=== PATIENT | female | born 1990 | race Caucasian/White ===

== ENCOUNTER 2021-05-22 11:06 | Day surgery (SDC) | payer OTHER ==
[2021-05-22] MEDS ORDERED: LIDOCAINE HCL 2% 100 MG/5 ML IJ ONE (11:07)
[2021-05-22] MEDS ORDERED: DIPRIVAN 200 MG/20 ML IV ONE (11:58)
[2021-05-22] MEDS ORDERED: Lactated Ringers 1,000 ML IV ONE (15:57)
--- NOTE | 2021-05-23 11:53 | XRAY ---
24 seconds of fluoroscopy was used in surgery for a bilateral L4-S1 MBB.
--- NOTE | 2021-05-26 00:08 | XRAY ---
Indication: Bilateral L4-S1 MBB. Intraoperative fluoroscopy was provided for 24 seconds. A single digital spot image submitted for interpretation demonstrates posterior spinal needle tips projected over the expected course of the left and right L4-S1 nerve roots. Correlate with intraoperative findings/report.
== END 2021-05-22 12:40 | disposition home or self-care (01) ==
LOC: SDC-PAIN 11:06
PROVIDERS: ATTEND Psychiatry & Neurology Pain Medicine
DX: M47.816 Spondylosis without myelopathy or radiculopathy, lumbar region (principal); E11.9 Type 2 diabetes mellitus without complications; Z79.899 Other long term (current) drug therapy
CPT/HCPCS: 64493; 64494; 72020; 77002; 82947; 84703; J2704

== ENCOUNTER 2021-11-13 09:16 | Day surgery (SDC) | payer OTHER ==
[2021-11-13] MEDS ORDERED: Depo-Medrol 40 MG/ML IM ONE (09:17)
[2021-11-13] MEDS ORDERED: Sodium Chloride 0.9% 10 ML FLUSH Syringe IJ ONE (09:17)
[2021-11-13] MEDS ORDERED: DIPRIVAN 200 MG/20 ML IV ONE (11:03)
--- NOTE | 2021-11-13 11:51 | XRAY ---
Indication: Left L4-S1 transforaminal ELLIOT. Intraoperative fluoroscopy was provided for 31 seconds. 4 digital spot image submitted for interpretation demonstrates posterior needle tips projecting over the expected left L4 and L5 nerve roots. Small amount of contrast injected for needle tip placement. Correlate with intraoperative findings/report.
--- NOTE | 2021-11-13 12:38 | XRAY ---
31 seconds of fluoroscopy was used in surgery for a left L4-S1 transforaminal ELLIOT.
[2021-11-13] MEDS ORDERED: Lactated Ringers 1,000 ML IV ONE (13:13)
== END 2021-11-13 11:30 | disposition home or self-care (01) ==
LOC: SDC-PAIN 09:16
PROVIDERS: ATTEND Psychiatry & Neurology Pain Medicine
DX: M54.16 Radiculopathy, lumbar region (principal); I10 Essential (primary) hypertension; E11.9 Type 2 diabetes mellitus without complications; Z79.899 Other long term (current) drug therapy
CPT/HCPCS: 64483; 64484; 72100; 77003; 82947; 84703; J1030; J2704; Q9966

== ENCOUNTER 2022-02-12 08:42 | Day surgery (SDC) | payer OTHER ==
[2022-02-12] MEDS ORDERED: BUPIVACAINE 0.5% VIAL IJ ONE (08:43)
[2022-02-12] MEDS ORDERED: Depo-Medrol 40 MG/ML IM ONE (08:43)
[2022-02-12] MEDS ORDERED: Lactated Ringers 1,000 ML IV ONE ×2 (09:53→10:32)
[2022-02-12] MEDS ORDERED: DIPRIVAN 200 MG/20 ML IV ONE (10:17)
--- NOTE | 2022-02-12 11:36 | XRAY ---
22 seconds fluoroscopy time in surgery for bilateral SI joint injections.
--- NOTE | 2022-02-12 11:40 | XRAY ---
Indication: Bilateral SI joint injection. Intraoperative fluoroscopy provided for 22 seconds. 4 digital spot image submitted for interpretation demonstrates posterior needle tips projecting over the inferior left and right SI joints. Correlate with intraoperative findings/report.
== END 2022-02-12 10:40 | disposition home or self-care (01) ==
LOC: SDC-PAIN 08:42
PROVIDERS: ATTEND Psychiatry & Neurology Pain Medicine
DX: M46.1 Sacroiliitis, not elsewhere classified (principal); I10 Essential (primary) hypertension; E11.9 Type 2 diabetes mellitus without complications; Z79.899 Other long term (current) drug therapy
CPT/HCPCS: 27096; 72202; 77002; 82947; 84703; G0260; J1030; J2704

== ENCOUNTER 2022-03-26 06:58 | Day surgery (SDC) | payer OTHER ==
[2022-03-26] MEDS ORDERED: Marcaine Mpf 0.5% Vial 30 Ml IJ ONE (06:59)
[2022-03-26] MEDS ORDERED: Depo-Medrol 40 MG/ML IM ONE (06:59)
[2022-03-26] MEDS ORDERED: DIPRIVAN 200 MG/20 ML IV ONE (08:33)
--- NOTE | 2022-03-26 09:51 | XRAY ---
Indication: Left knee injection. Intraoperative fluoroscopy provided for 6 seconds. Single digital spot image submitted for interpretation demonstrates needle tip projecting over the left femur intracondylar notch. Small amount of contrast injected for needle tip placement. Correlate with intraoperative findings/report.
[2022-03-26] MEDS ORDERED: Lactated Ringers 1,000 ML IV ONE (10:22)
--- NOTE | 2022-03-26 10:53 | XRAY ---
6 seconds of fluoroscopy was used in surgery for a left knee intra-articular injection.
== END 2022-03-26 08:58 | disposition home or self-care (01) ==
LOC: SDC-PAIN 06:58
PROVIDERS: ATTEND Psychiatry & Neurology Pain Medicine
DX: M17.12 Unilateral primary osteoarthritis, left knee (principal); E11.9 Type 2 diabetes mellitus without complications; Z79.899 Other long term (current) drug therapy
CPT/HCPCS: 20610; 73560; 77002; 81025; 82947; J1030; J2704; Q9966

== ENCOUNTER 2022-05-28 08:36 | Day surgery (SDC) | payer OTHER ==
[2022-05-28] MEDS ORDERED: Depo-Medrol 40 MG/ML IM ONE (08:37)
[2022-05-28] MEDS ORDERED: Marcaine Mpf 0.5% Vial 30 Ml IJ ONE (08:37)
[2022-05-28] MEDS ORDERED: DIPRIVAN 200 MG/20 ML IV ONE (09:57)
--- NOTE | 2022-05-28 11:31 | XRAY ---
Indication: Bilateral SI joint injection. Intraoperative fluoroscopy provided for 24 seconds. 4 digital spot image submitted for interpretation demonstrates posterior needle tip projecting over the inferior left and right SI joint. Correlate with intraoperative findings/report.
[2022-05-28] MEDS ORDERED: Lactated Ringers 1,000 ML IV ONE (12:14)
--- NOTE | 2022-05-28 14:10 | XRAY ---
28 seconds of fluoroscopy was used in surgery for a bilateral SI joints injections.
== END 2022-05-28 10:20 | disposition home or self-care (01) ==
LOC: SDC-PAIN 08:36
PROVIDERS: ATTEND Psychiatry & Neurology Pain Medicine
DX: M46.1 Sacroiliitis, not elsewhere classified (principal); E11.9 Type 2 diabetes mellitus without complications; Z79.899 Other long term (current) drug therapy
CPT/HCPCS: 27096; 72202; 77002; 81025; 82947; G0260; J1030; J2704

== ENCOUNTER 2023-01-28 06:52 | Day surgery (SDC) | payer OTHER ==
[2023-01-28] MEDS ORDERED: BUPIVACAINE 0.5% VIAL IJ ONE (06:53)
[2023-01-28] MEDS ORDERED: LIDOCAINE HCL 1% 50 MG/5 ML VL PF IJ ONE (06:53)
[2023-01-28 07:07] LABS: HCG URINE TEST NEGATIVE (NEGATIVE)
[2023-01-28] MEDS ORDERED: DIPRIVAN 200 MG/20 ML IV ONE (08:19)
--- NOTE | 2023-01-28 09:55 | XRAY ---
Indication: Bilateral L4-S1 MBB. Intraoperative fluoroscopy provided for 20 seconds. Single digital spot image submitted for interpretation demonstrates posterior needle tips projecting over the expected left and right L4-S1 nerve roots. Correlate with intraoperative findings/report.
[2023-01-28] MEDS ORDERED: Lactated Ringers 1,000 ML IV ONE (11:41)
--- NOTE | 2023-01-28 12:22 | XRAY ---
20 seconds of fluoroscopy was used in surgery for a bilateral L4-S1 MBB.
== END 2023-01-28 08:50 | disposition home or self-care (01) ==
LOC: SDC-PAIN 06:52
PROVIDERS: ATTEND Psychiatry & Neurology Pain Medicine
DX: M47.816 Spondylosis without myelopathy or radiculopathy, lumbar region (principal); E11.9 Type 2 diabetes mellitus without complications; Z79.899 Other long term (current) drug therapy
CPT/HCPCS: 36415; 64493; 64494; 72020; 77002; 81025; 82947; J2001; J2704

== ENCOUNTER 2023-02-25 07:00 | Day surgery (SDC) | payer OTHER ==
[2023-02-25] MEDS ORDERED: BUPIVACAINE 0.5% VIAL IJ ONE (07:01)
[2023-02-25] MEDS ORDERED: LIDOCAINE HCL 1% 50 MG/5 ML VL PF IJ ONE (07:01)
[2023-02-25] MEDS ORDERED: Depo-Medrol 40 MG/ML IM ONE (07:01)
[2023-02-25 07:11] LABS: HCG URINE TEST NEGATIVE (NEGATIVE)
[2023-02-25] MEDS ORDERED: DIPRIVAN 200 MG/20 ML IV ONE ×2 (08:01→08:09)
--- NOTE | 2023-02-25 09:59 | XRAY ---
Indication: Left L4-S1 RFA. Intraoperative fluoroscopy provided for 35 seconds. 3 digital spot images submitted for interpretation demonstrates posterior needle tips projecting over the expected left L4-S1 nerve roots. Correlate with intraoperative findings/report.
--- NOTE | 2023-02-25 10:19 | XRAY ---
35 seconds of fluoroscopy was used in surgery for a left L4-S1 RFA.
[2023-02-25] MEDS ORDERED: Lactated Ringers 1,000 ML IV ONE (10:41)
== END 2023-02-25 08:40 | disposition home or self-care (01) ==
LOC: SDC-PAIN 07:00
PROVIDERS: ATTEND Psychiatry & Neurology Pain Medicine
DX: M47.817 Spondylosis without myelopathy or radiculopathy, lumbosacral region (principal); E11.9 Type 2 diabetes mellitus without complications; I10 Essential (primary) hypertension; Z79.899 Other long term (current) drug therapy
CPT/HCPCS: 64635; 64636; 72100; 77002; 81025; 82947; J1030; J2001; J2704

== ENCOUNTER 2023-03-18 06:59 | Day surgery (SDC) | payer OTHER ==
[2023-03-18] MEDS ORDERED: BUPIVACAINE 0.5% VIAL IJ ONE (07:00)
[2023-03-18] MEDS ORDERED: Depo-Medrol 40 MG/ML IM ONE (07:00)
[2023-03-18] MEDS ORDERED: LIDOCAINE HCL 1% 50 MG/5 ML VL PF IJ ONE (07:00)
[2023-03-18 07:13] LABS: HCG URINE TEST NEGATIVE (NEGATIVE)
[2023-03-18] MEDS ORDERED: DIPRIVAN 200 MG/20 ML IV ONE (07:56)
[2023-03-18] MEDS ORDERED: Versed 2 MG/2 ML Injection ONE (08:02)
--- NOTE | 2023-03-18 10:09 | XRAY ---
Indication: Right L4-S1 RFA. Intraoperative fluoroscopy was provided for 26 seconds. 3 digital spot image submitted for interpretation demonstrates posterior needle tips projecting over the expected right L4-S1 nerve roots. Correlate with intraoperative findings/report.
--- NOTE | 2023-03-18 10:11 | XRAY ---
26 seconds of fluoroscopy was used in surgery for a right L4-S1 RFA.
[2023-03-18] MEDS ORDERED: Lactated Ringers 1,000 ML IV ONE (15:11)
== END 2023-03-18 08:35 | disposition home or self-care (01) ==
LOC: SDC-PAIN 06:59
PROVIDERS: ATTEND Psychiatry & Neurology Pain Medicine
DX: M47.816 Spondylosis without myelopathy or radiculopathy, lumbar region (principal); E11.9 Type 2 diabetes mellitus without complications; Z79.899 Other long term (current) drug therapy
CPT/HCPCS: 64635; 64636; 72100; 77002; 81025; 82947; J1030; J2001; J2250; J2704

== ENCOUNTER 2023-06-10 08:14 | Day surgery (SDC) | payer OTHER | END 2023-06-10 08:40 | disposition home or self-care (01) | LOC: SDC-PAIN 08:14 | PROVIDERS: ATTEND Psychiatry & Neurology Pain Medicine | DX: Z53.8 Procedure and treatment not carried out for other reasons (principal); E11.9 Type 2 diabetes mellitus without complications | CPT/HCPCS: 82947 ==

== ENCOUNTER 2023-06-10 08:39 | Emergency (ER) | payer OTHER ==
[2023-06-10 09:02] VITALS: TEMP 97
[2023-06-10 09:18] VITALS: BP 150/99; PULSE 88; RESP 18; O2SAT 98
--- NOTE | 2023-06-25 13:23 | ER REPORT ---
CHIEF COMPLAINT: Hyperglycemia. HISTORY OF PRESENT ILLNESS: The patient is seen in outpatient surgery today. She had an elevated blood sugar there greater than 200. The patient states that she does have a history of diabetes. She was instructed not to take any of her medication last night and fast into this morning. Therefore, she is not surprised that she has elevated blood sugar. She was unsure of how to take the medication in the setting of needing outpatient labs drawn, outpatient procedure done. PAST MEDICAL/SURGICAL HISTORY: Diabetes. CURRENT MEDICATIONS: Metformin. Unsure of other diabetes medication. ALLERGIES: NKDA. FAMILY HISTORY: Noncontributory. SOCIAL HISTORY: Noncontributory. REVIEW OF SYSTEMS: HEENT: No abnormalities. CHEST: No abnormalities. HEART: No abnormalities. ABDOMEN: No abnormalities. EXTREMITIES: PHYSICAL EXAMINATION: HEENT: Normal inspection. Trachea midline. Oropharynx clear. No signs of redness, swelling or angioedema. NECK: No abnormalities, skin tone normal, 2+ carotid pulses. CHEST: Normal inspection. HEART: Heart sounds normal. No signs of abnormalities. ABDOMEN: No abnormalities. No tenderness, no rebound, no guarding. EXTREMITIES: No abnormalities. IMPRESSION: The patient states that she did not take diabetes medication as prescribed given the need for testing this morning. Given this, I am not surprised that her blood sugar was elevated. She is currently asymptomatic. As above no chest pain, shortness of breath, nausea or vomiting. I do not believe that we should have any intervention in the emergency department today. I did discuss all of this with the patient. She felt comfortable going home and taking her diabetes medication as prescribed. She will then retest her blood sugar at home which she is able to do. Should there be any problems or other abnormalities she will call back to the emergency department, return to the emergency department, call her primary care provider. PLAN: As above. Plan to let patient go home today with medication as prescribed. No signs of diabetic ketoacidosis or other significant pathology.
== END 2023-06-10 09:10 | disposition home or self-care (01) ==
LOC: ED 08:39
DX: E11.65 Type 2 diabetes mellitus with hyperglycemia (principal); Z79.84 Long term (current) use of oral hypoglycemic drugs
CPT/HCPCS: 99282

== ENCOUNTER 2023-07-22 09:32 | Day surgery (SDC) | payer OTHER ==
[2023-07-22] MEDS ORDERED: Depo-Medrol 40 MG/ML IM ONE (09:33)
[2023-07-22] MEDS ORDERED: BUPIVACAINE 0.5% VIAL IJ ONE (09:33)
[2023-07-22 09:45] LABS: HCG URINE TEST NEGATIVE (NEGATIVE)
[2023-07-22] MEDS ORDERED: DIPRIVAN 200 MG/20 ML IV ONE (11:09)
[2023-07-22] MEDS ORDERED: Versed 2 MG/2 ML Injection ONE (11:09)
--- NOTE | 2023-07-22 12:32 | XRAY ---
Indication: Left hip and greater trochanter bursa injection. Intraoperative fluoroscopy provided for 25 seconds. 2 digital spot images submitted for interpretation demonstrates needle tip projecting lateral to left femur neck. Second needle tip lateral to greater trochanter. Small amount of contrast injected for both needle tip placement. Correlate with intraoperative findings/report.
--- NOTE | 2023-07-22 12:42 | XRAY ---
25 seconds of fluoroscopy was used in surgery for a left intra-articular hip and greater trochanteric bursa injection.
[2023-07-22] MEDS ORDERED: Lactated Ringers 1,000 ML IV ONE (13:18)
== END 2023-07-22 11:40 | disposition home or self-care (01) ==
LOC: SDC-PAIN 09:32
PROVIDERS: ATTEND Psychiatry & Neurology Pain Medicine
DX: M16.12 Unilateral primary osteoarthritis, left hip (principal); E11.9 Type 2 diabetes mellitus without complications
CPT/HCPCS: 20610; 73502; 77002; 81025; 82947; J1030; J2250; J2704; Q9966

== ENCOUNTER 2025-08-23 08:04 | Day surgery (SDC) | payer OTHER ==
[2025-08-23] MEDS ORDERED: BUPIVACAINE 0.5% VIAL IJ ONE (08:05)
[2025-08-23] MEDS ORDERED: methylPREDNISolone acetate IM ONE (08:05)
[2025-08-23 10:24] LABS: HCG URINE TEST NEGATIVE (NEGATIVE)
[2025-08-23] MEDS ORDERED: propofoL IV ONE (10:51)
[2025-08-23] MEDS ORDERED: Lactated Ringers 1,000 ML IV ONE (11:06)
--- NOTE | 2025-08-23 13:08 | XRAY ---
Indication: Left knee injection. Intraoperative fluoroscopy provided for 10 seconds. Single digital spot image submitted for interpretation demonstrates needle tip projecting over left femur intercondylar notch. Small amount of contrast injected for needle tip placement. Correlate with intraoperative findings/report.
--- NOTE | 2025-08-23 14:00 | XRAY ---
10 seconds of fluoroscopy was used in surgery for a left intra-articular knee injection.
== END 2025-08-23 11:25 | disposition home or self-care (01) ==
LOC: SDC-PAIN 08:04
PROVIDERS: ATTEND Psychiatry & Neurology Pain Medicine
DX: M17.12 Unilateral primary osteoarthritis, left knee (principal); E11.9 Type 2 diabetes mellitus without complications